=== PATIENT | female | born 1930 | race Caucasian/White ===

== ENCOUNTER → 2017-08-06 | Outpatient (CLI) | payer MEDICARE, OTHER ==
[~2017-08-06] MED LIST: LOSA50TA2 PO; POTA25PA PO; TRIA1CAP PO
[2017-08-06 15:00] LABS: ANION GAP 7 mmol/L (5-15); CALCIUM 9.2 mg/dL (8.5-10.1); CHLORIDE 107 mmol/L (98-107)
[2017-08-06 15:05] LABS: ALANINE AMINOTRANSFERASE 23 U/L (12-78); ALKALINE PHOSPHATASE 214 U/L (45-117); BILIRUBIN,TOTAL 0.9 mg/dL (0.2-1.0); CREATININE 0.76 mg/dL (0.55-1.02); TOTAL PROTEIN 7.3 g/dL (6.4-8.2)
== END | disposition home or self-care (01) ==
LOC: STAR 13:16
PROVIDERS: ATTEND Internal Medicine
DX: Z01.818 Encounter for other preprocedural examination (principal); K86.89 Other specified diseases of pancreas; K83.1 Obstruction of bile duct; K83.8 Other specified diseases of biliary tract
CPT/HCPCS: 36415; 80053; 93005

== ENCOUNTER 2017-08-10 06:02 | Day surgery (SDC) | payer MEDICARE ==
[~2017-08-10] VITALS: Ht 162.6 cm; Wt 44.4 kg
[2017-08-10 07:43] VITALS: BP 145/76
[2017-08-10] MEDS ORDERED: LACTATED RINGERS 1,000 ML IV SCH (07:48)
[2017-08-10] MEDS ORDERED: FENTANYL PF 100 MCG/2ML ONE (07:52)
[2017-08-10] MEDS ORDERED: GLYCOPYRROLATE 0.2MG/1ML, 5ML ONE (08:25)
[2017-08-10] MEDS ORDERED: ONDANSETRON 2MG/ML, 2ML ONE (08:25)
[2017-08-10] MEDS ORDERED: PROPOFOL 10 MG/ML, 20ML ONE (08:25)
[2017-08-10] MEDS ORDERED: NEOSTIGMINE 1 MG/ML, 10ML ONE (08:25)
[2017-08-10] MEDS ORDERED: CEFAZOLIN 1,000 MG ONE (08:25)
[2017-08-10] MEDS ORDERED: ROCURONIUM 10 MG/ML,10ML ONE (08:25)
== END 2017-08-10 12:45 ==
LOC: OUT 06:02
PROVIDERS: ATTEND Internal Medicine
DX: C25.1 Malignant neoplasm of body of pancreas (principal); C24.0 Malignant neoplasm of extrahepatic bile duct; D64.9 Anemia, unspecified; Z90.710 Acquired absence of both cervix and uterus; Z98.890 Other specified postprocedural states
CPT/HCPCS: 43261; 43276; 74328; 88104; 88112; 88172; 88173; 88177; 88307; C1769; C1876; J0690; J2405; J2704; J2710; J3010; J7120; J3490

== ENCOUNTER → 2017-08-25 | Outpatient (CLI) | payer MEDICARE | END | disposition home or self-care (01) | LOC: PETCFH 08:11 | PROVIDERS: ATTEND Surgery | DX: C25.0 Malignant neoplasm of head of pancreas (principal) | CPT/HCPCS: 78815; A9552 ==

== ENCOUNTER → 2017-08-27 | Outpatient (CLI) | payer MEDICARE ==
[~2017-08-27] MED LIST changes: +OMNIPAQUE 350 MG/ML, 100ML BOTTLE ONE
== END | disposition home or self-care (01) ==
LOC: RAD 13:02
PROVIDERS: ATTEND Surgery
DX: C25.0 Malignant neoplasm of head of pancreas (principal); K86.89 Other specified diseases of pancreas
CPT/HCPCS: 74178; Q9967

== ENCOUNTER → 2017-12-18 | Outpatient (CLI) | payer MEDICARE ==
[~2017-12-18] MED LIST changes: -OMNIPAQUE 350 MG/ML, 100ML BOTTLE ONE
== END ==
LOC: RAD 11:37
PROVIDERS: ATTEND Family Medicine
DX: J18.9 Pneumonia, unspecified organism (principal)
CPT/HCPCS: 71046

== ENCOUNTER → 2017-12-31 | Outpatient (CLI) | payer MEDICARE | LOC: ROC 14:54 | PROVIDERS: ATTEND Radiology Radiation Oncology | DX: C25.9 Malignant neoplasm of pancreas, unspecified (principal) | CPT/HCPCS: 99214; G0463 ==

== ENCOUNTER 2018-02-03 03:22 | Emergency (ER) | payer MEDICARE ==
[~2018-02-03] VITALS: Ht 160 cm; Wt 42.0 kg
[2018-02-03] MEDS ORDERED: FURO-93 PO (03:33)
[2018-02-03] MEDS ORDERED: DIPH25CA61 PO (03:33)
[2018-02-03] MEDS ORDERED: ACETAMINOPHEN 650 MG/20.3 ML UDC ONE (03:43)
[2018-02-03] MEDS ORDERED: ACETAMINOPHEN 650 MG/20.3 ML UDC PO ONE (04:00)
[2018-02-03 04:20] LABS: BASOPHILS # (AUTO) 0.01 x10^3/uL (0-0.1); BASOPHILS % (AUTO) 0 % (0-1); EOSINOPHILS # (AUTO) 0.07 x10^3/uL (0-0.4); EOSINOPHILS % (AUTO) 1 % (1-7); LYMPHOCYTES # (AUTO) 0.97 x10^3/uL (1-3.4); LYMPHOCYTES % (AUTO) 10 % (22-44); MD NO; MEAN CORPUSCULAR HEMOGLOBIN 28.1 pg (27.0-34.8); MEAN CORPUSCULAR HGB CONC 33.2 g/dL (32.4-35.8); MEAN CORPUSCULAR VOLUME 84.6 fL (80-100); MEAN PLATELET VOLUME 8.3 fL (7.4-10.4); MONOCYTES # (AUTO) 0.21 x10^3/uL (0.2-0.8); MONOCYTES % (AUTO) 2 % (2-9); NEUTROPHILS # (AUTO) 8.42 x10^3/uL (1.8-6.8); NEUTROPHILS % (AUTO) 87 % (42-75); PLATELET COUNT 215 x10^3/uL (130-400); RED BLOOD COUNT 3.22 x10^6/uL (3.82-5.3)
[2018-02-03 04:32] LABS: ALANINE AMINOTRANSFERASE 32 U/L (12-78); ALBUMIN 2.5 g/dL (3.4-5.0); ANION GAP 9 mmol/L (5-15); CALCIUM 8.4 mg/dL (8.5-10.1); CHLORIDE 112 mmol/L (98-107); CREATININE 0.63 mg/dL (0.55-1.02)
[2018-02-03 04:34] LABS: ALKALINE PHOSPHATASE 164 U/L (45-117); BILIRUBIN,TOTAL 0.4 mg/dL (0.2-1.0); TOTAL PROTEIN 5.6 g/dL (6.4-8.2)
[2018-02-03] MEDS ORDERED: SODIUM CHLORIDE FLUSH 10ML SYR IVF ONE (05:00)
[2018-02-03] MEDS ORDERED: SODIUM CHLORIDE 0.9% 1,000ML IVBOLUS ONE (05:00)
[2018-02-03 05:11] LABS: CULTURE INDICATED? YES; MICROSCOPIC INDICATED
[2018-02-03 05:49] VITALS: BP 110/56
== END 2018-02-03 05:52 | disposition home or self-care (01) ==
LOC: ED 05:40
DX: R50.9 Fever, unspecified (principal); I10 Essential (primary) hypertension; Z85.07 Personal history of malignant neoplasm of pancreas
CPT/HCPCS: 36415; 71045; 80053; 81001; 83605; 84145; 85025; 87040; 87086; 93005; 99285; J7030

== ENCOUNTER 2018-03-10 07:47 | Day surgery (SDC) | payer MEDICARE ==
[~2018-03-10] VITALS: Ht 160 cm; Wt 42.0 kg
[~2018-03-10 07:47] MED LIST changes: +DIPH25CA61 PO; +FURO-93 PO
[2018-03-10 08:25] VITALS: BP 163/76
[2018-03-10] MEDS ORDERED: SODIUM CHLORIDE 0.9% 1,000 ML IV SCH (08:28)
[2018-03-10] MEDS ORDERED: FENTANYL PF 100 MCG/2ML ONE (10:55)
[2018-03-10] MEDS ORDERED: MIDAZOLAM 1 MG/ML, 5ML ONE (10:55)
[2018-03-10] MEDS ORDERED: FLUMAZENIL 0.1 MG/1 ML, 5ML ONE (10:55)
[2018-03-10] MEDS ORDERED: NALOXONE 1 MG/ML, 2ML ONE (10:55)
[2018-03-10] MEDS ORDERED: LIDOCAINE-MPF 2%, 2ML ONE (10:56)
== END 2018-03-10 13:25 | disposition home or self-care (01) ==
LOC: OUT 07:47
PROVIDERS: ATTEND Radiology Radiation Oncology
DX: C25.9 Malignant neoplasm of pancreas, unspecified (principal); C78.89 Secondary malignant neoplasm of other digestive organs; I25.10 Atherosclerotic heart disease of native coronary artery without angina pectoris; Z98.890 Other specified postprocedural states; I10 Essential (primary) hypertension; Z79.899 Other long term (current) drug therapy
CPT/HCPCS: 49411; 77014; 99156; 99157; J2250; J3010; J3490; A4648; J2310; J7030

== ENCOUNTER → 2018-03-17 | Outpatient (CLI) | payer MEDICARE ==
[~2018-03-17] MED LIST changes: +OMNIPAQUE 350 MG/ML, 100ML BOTTLE ONE
== END | disposition home or self-care (01) ==
LOC: EDSTATUS 09:30 → CFH 10:40
PROVIDERS: ATTEND Radiology Radiation Oncology
DX: K86.89 Other specified diseases of pancreas (principal); I10 Essential (primary) hypertension
CPT/HCPCS: 74170; 82565; Q9967

== ENCOUNTER → 2018-04-14 | Outpatient (CLI) | payer MEDICARE ==
[~2018-04-14] MED LIST changes: -OMNIPAQUE 350 MG/ML, 100ML BOTTLE ONE
== END | disposition home or self-care (01) ==
LOC: ROC 14:50
PROVIDERS: ATTEND Radiology Radiation Oncology
DX: C25.0 Malignant neoplasm of head of pancreas (principal); Z88.1 Allergy status to other antibiotic agents
CPT/HCPCS: 99213; G0463

== ENCOUNTER → 2018-05-27 | Outpatient (CLI) | payer MEDICARE ==
[~2018-05-27] MED LIST changes: +OMNIPAQUE 350 MG/ML, 100ML BOTTLE ONE
== END | disposition home or self-care (01) ==
LOC: CFH 12:59
PROVIDERS: ATTEND Radiology Radiation Oncology
DX: C25.0 Malignant neoplasm of head of pancreas (principal); K76.9 Liver disease, unspecified; M48.54XA Collapsed vertebra, not elsewhere classified, thoracic region, initial encounter for fracture
CPT/HCPCS: 74177; Q9967

== ENCOUNTER → 2018-05-30 | Outpatient (CLI) | payer MEDICARE ==
[~2018-05-30] MED LIST changes: -OMNIPAQUE 350 MG/ML, 100ML BOTTLE ONE
== END | disposition home or self-care (01) ==
LOC: ROC 10:07
PROVIDERS: ATTEND Radiology Radiation Oncology
DX: Z08 Encounter for follow-up examination after completed treatment for malignant neoplasm (principal); C25.0 Malignant neoplasm of head of pancreas; Z88.1 Allergy status to other antibiotic agents
CPT/HCPCS: 99213; G0463

== ENCOUNTER → 2018-06-14 | Outpatient (CLI) | payer MEDICARE | END | disposition home or self-care (01) | LOC: CFH 15:31 | PROVIDERS: ATTEND Family Medicine | DX: M81.0 Age-related osteoporosis without current pathological fracture (principal); M43.8X5 Other specified deforming dorsopathies, thoracolumbar region; M47.817 Spondylosis without myelopathy or radiculopathy, lumbosacral region | CPT/HCPCS: 72072; 72100 ==

== ENCOUNTER 2018-07-25 04:45 | Emergency (ER) | payer MEDICARE ==
[~2018-07-25] VITALS: Ht 160 cm; Wt 43.6 kg
--- NOTE | 2018-07-25 04:51 | NUR ---
PT. REPORTS COUGH SINCE YESTERDAY; REPORTS COUGHING UP A LOT OF PHLEM. DENIES SOB/CP/OTHER CONCERNS. PER TRIAGE NOTE
--- NOTE | 2018-07-25 05:09 | NUR ---
CXR WILL BE DONE
[2018-07-25 05:47] VITALS: BP_DIAS 66
--- NOTE | 2018-07-25 05:47 | NUR ---
dr starkey explained poc pt and son understood pt up changing clothes ambulation is very stable
[2018-07-25 05:49] VITALS: BP_SYST 153
--- NOTE | 2018-07-25 06:02 | NUR ---
given dc instruction pt and son understood pt up ambulated to check out
== END 2018-07-25 06:04 | disposition home or self-care (01) ==
LOC: ED 06:00
DX: J18.1 Lobar pneumonia, unspecified organism (principal); J20.8 Acute bronchitis due to other specified organisms; I10 Essential (primary) hypertension; Z85.07 Personal history of malignant neoplasm of pancreas
CPT/HCPCS: 71046; 99283

== ENCOUNTER → 2018-08-31 | Outpatient (CLI) | payer MEDICARE ==
[~2018-08-31] MED LIST changes: +OMNIPAQUE 350 MG/ML, 100ML BOTTLE ONE
== END | disposition home or self-care (01) ==
LOC: CFH 12:43
PROVIDERS: ATTEND Radiology Radiation Oncology
DX: C78.7 Secondary malignant neoplasm of liver and intrahepatic bile duct (principal); N28.1 Cyst of kidney, acquired; K86.89 Other specified diseases of pancreas; D73.89 Other diseases of spleen; K86.9 Disease of pancreas, unspecified; R91.8 Other nonspecific abnormal finding of lung field; Z90.49 Acquired absence of other specified parts of digestive tract
CPT/HCPCS: 74177; Q9967

== ENCOUNTER 2018-09-02 07:42 | Outpatient (CLI) | payer MEDICARE ==
[~2018-09-02 07:42] MED LIST changes: -OMNIPAQUE 350 MG/ML, 100ML BOTTLE ONE
== END 2018-09-02 23:59 | disposition home or self-care (01) ==
LOC: ROC 07:42
PROVIDERS: ATTEND Radiology Radiation Oncology
DX: Z02.9 Encounter for administrative examinations, unspecified (principal)

== ENCOUNTER 2018-09-06 10:09 | Outpatient (CLI) | payer MEDICARE | END 2018-09-06 23:59 | disposition home or self-care (01) | LOC: ROC 10:09 | PROVIDERS: ATTEND Radiology Radiation Oncology | DX: Z08 Encounter for follow-up examination after completed treatment for malignant neoplasm (principal); C25.9 Malignant neoplasm of pancreas, unspecified | CPT/HCPCS: 99212; G0463 ==